=== PATIENT | female | born 1970 | race American Indian/Alaskan Native ===

== ENCOUNTER 2018-11-20 10:01 | Emergency (ER) | payer OTHER ==
[2018-11-20] MEDS ORDERED: NORMODYNE ONE (10:42)
[2018-11-20] MEDS ORDERED: NORMODYNE PO ONE (11:00)
--- NOTE | 2018-11-20 11:02 | Emergency Department Report ---
ED Female HPI - General Chief complaint: Urogenital-Female Stated complaint: PAIN WITH URINATION Time Seen by Provider: 11/20/18 10:35 Source: patient Mode of arrival: Ambulatory Limitations: No Limitations - History of Present Illness Initial comments: Mrs. Gimenez is a very pleasant 48-year-old female with history of hypertension who presents with dysuria. She is concerned for urinary tract infection. She has urinary frequency, dysuria. She also has malodorous urine. She has been in her normal state of health otherwise. However she does admit she has not taken her blood pressure medication in quite some time. She normally takes lisinopril Hydrochlorothiazide. She does not have a primary care physician. She normally goes [facility] ER for hypertension medication. She denies headache. She denies visual changes patient chest pain. She denies paresthesias. MD Complaint: dysuria -: Gradual, days(s) (4) Severity: mild Quality: burning Consistency: intermittent Worsens with: urination Are you Now?: No Associated Symptoms: denies other symptoms - Related Data Previous Rx's Medication Instructions Recorded Last Taken Type Lisinopril [Zestril TAB] 40 mg PO DAILY 90 Days #90 tablet 11/20/18 Unknown Rx cephALEXin [Keflex] 500 mg PO Q6HR 5 Days #20 capsule 11/20/18 Unknown Rx hydroCHLOROthiazide [HCTZ] 25 mg PO QDAY 90 Days #90 tablet 11/20/18 Unknown Rx Allergies Allergy/AdvReac Type Severity Reaction Status Date / Time No Known Allergies Allergy Verified 11/20/18 10:04 ED Review of Systems ROS: Stated complaint: PAIN WITH URINATION Other details as noted in HPI Comment: All other systems reviewed and negative Constitutional: denies: fever, malaise Respiratory: denies: cough Cardiovascular: denies: chest pain Gastrointestinal: denies: abdominal pain Skin: denies: rash, lesions ED Past Medical Hx - Past Medical History Previous Medical History?: Yes Hx Hypertension: Yes (non-compliant with meds) - Surgical History Past Surgical History?: No - Social History Smoking Status: Never Smoker Substance Use Type: None - Medications Home Medications: Home Medications Medication Instructions Recorded Confirmed Last Taken Type Lisinopril [Zestril TAB] 40 mg PO DAILY 90 Days #90 tablet 11/20/18 Unknown Rx cephALEXin [Keflex] 500 mg PO Q6HR 5 Days #20 capsule 11/20/18 Unknown Rx hydroCHLOROthiazide [HCTZ] 25 mg PO QDAY 90 Days #90 tablet 11/20/18 Unknown Rx ED Physical Exam - General Limitations: No Limitations General appearance: alert, in no apparent distress - Head Head exam: Present: atraumatic, normocephalic - Eye Eye exam: Present: normal appearance - ENT ENT exam: Present: mucous membranes moist - Neck Neck exam: Present: normal inspection, full ROM - Respiratory Respiratory exam: Present: normal lung sounds bilaterally. Absent: respiratory distress, wheezes, rales, rhonchi - Cardiovascular Cardiovascular Exam: Present: regular rate, normal rhythm, normal heart sounds. Absent: systolic murmur, diastolic murmur, rubs, gallop - GI/Abdominal GI/Abdominal exam: Present: soft, normal bowel sounds. Absent: distended, tenderness, guarding - Extremities Exam Extremities exam: Present: normal inspection - Back Exam Back exam: Present: normal inspection - Neurological Exam Neurological exam: Present: alert, oriented X3 - Psychiatric Psychiatric exam: Present: normal affect, normal mood - Skin Skin exam: Present: warm, dry, intact, normal color. Absent: rash ED Course Vital Signs 11/20/18 11/20/18 10:11 10:45 Temperature 98.1 F Pulse Rate 92 H 102 H Respiratory 20 Rate Blood Pressure 239/131 Blood Pressure 215/125 [Left] Blood Pressure 248/131 [Right] O2 Sat by Pulse 98 Oximetry ED Medical Decision Making - Medical Decision Making 1. UTI rx: keflex 2. asymptomatic hypertensive urgency, no indication of end organ damage, strongly encouraged medication compliance, prescribed 90 day Lisinopril HCTZ Critical care attestation.: If time is entered above; I have spent that time in minutes in the direct care of this critically ill patient, excluding procedure time. ED Disposition Clinical Impression: UTI (urinary tract infection), Asymptomatic hypertensive urgency Disposition: - TO HOME OR SELFCARE Is pt being admited?: No Does the pt Need Aspirin: No Condition: Stable Instructions: Hypertension (ED), Urinary Tract Infection in Women (ED) Prescriptions: hydroCHLOROthiazide [HCTZ] 25 mg PO QDAY 90 Days #90 tablet cephALEXin [Keflex] 500 mg PO Q6HR 5 Days #20 capsule Lisinopril [Zestril TAB] 40 mg PO DAILY 90 Days #90 tablet Referrals: CHUCK BLACKBURN MD [Primary Care Provider] - 3-5 Days [facility] [Outside] - 3-5 Days [facility] [Outside] - 3-5 Days [facility] [Outside] - 3-5 Days [facility] [Outside] - 3-5 Days [facility] [Outside] - 3-5 Days
[2018-11-20 11:24] LABS: Bilirubin,Urine NEG (Negative); Blood,Urine MOD (Negative); Color,Urine Yellow (Yellow); Mucus,Urine FEW /HPF; Protein,Urine <15 mg/dL mg/dL (Negative); Urobilinogen,Urine < 2.0 mg/dL (<2.0)
[2018-11-20 11:45] VITALS: BP 176/119
== END 2018-11-20 11:47 | disposition home or self-care (01) ==
LOC: ED 10:01
DX: N39.0 Urinary tract infection, site not specified (principal); I10 Essential (primary) hypertension
CPT/HCPCS: 81001; 87086

== ENCOUNTER 2019-01-03 17:03 | Emergency (ER) | payer SELFPAY ==
--- NOTE | 2019-01-03 17:11 | Event Note ---
ED Screening Note Date of service: 01/03/19 Time: 17:10 ED Screening Note: 48 y/o female comes in for wanting a refills on her blood pressure medication. This initial assessment/diagnostic orders/clinical plan/treatment(s) is/are subject to change based on patients health status, clinical progression and re- assessment by fellow clinical providers in the ED. Further treatment and workup at subsequent clinical providers discretion. Patient/guardian urged not to elope from the ED as their condition may be serious if not clinically assessed and managed. Initial orders include:
[2019-01-03 17:50] LABS: Basophils # (Auto) 0.1 K/mm3 (0.0-0.1); Basophils % (Auto) 1.3 % (0.0-1.8); Eosinophils # (Auto) 0.4 K/mm3 (0.0-0.4); Eosinophils % (Auto) 4.8 % (0.0-4.3); Hematocrit 41.6 % (30.3-42.9); Lymphocytes # (Auto) 2.5 K/mm3 (1.2-5.4); Lymphocytes % (Auto) 28.5 % (13.4-35.0); Mean Corpuscular HGB Conc 34 % (30-34); Mean Corpuscular Volume 91 fl (79-97); Monocytes # (Auto) 0.5 K/mm3 (0.0-0.8); Monocytes % (Auto) 5.3 % (0.0-7.3); Platelet Count 322 K/mm3 (140-440); Red Blood Count 4.58 M/mm3 (3.65-5.03); Red Cell Distribution Width 14.5 % (13.2-15.2)
[2019-01-03 18:10] LABS: BUN/Creatinine Ratio 18; Blood Urea Nitrogen 18 mg/dL (7-17); Calcium 10.3 mg/dL (8.4-10.2); Hemolysis Index 12
[2019-01-03] MEDS ORDERED: CATAPRES PO ONE (20:00)
[2019-01-03] MEDS ORDERED: APRESOLINE IV ONE (21:34)
--- NOTE | 2019-01-03 22:39 | Emergency Department Report ---
ED General Adult HPI - General Chief complaint: High BP Stated complaint: NEED BP MEDS Time Seen by Provider: 01/03/19 19:43 Source: patient Mode of arrival: Ambulatory Limitations: No Limitations - History of Present Illness Initial comments: Patient is a 48-year-old female who states she is out of her blood pressure medicines for several weeks and also has been poorly compliant with her diet who is complaining today needs she needs a refill of her medications. Patient states she has no headache shortness of breath chest pain nausea vomiting or focal neurological deficits at this time. Severity scale (0 -10): 0 - Related Data Previous Rx's Medication Instructions Recorded Last Taken Type cephALEXin [Keflex] 500 mg PO Q6HR 5 Days #20 capsule 11/20/18 Unknown Rx Lisinopril [Zestril TAB] 40 mg PO DAILY 90 Days #90 tablet 01/03/19 Unknown Rx hydroCHLOROthiazide [HCTZ] 25 mg PO QDAY 90 Days #90 tablet 01/03/19 Unknown Rx Allergies Allergy/AdvReac Type Severity Reaction Status Date / Time No Known Allergies Allergy Verified 11/20/18 10:04 ED Review of Systems ROS: Stated complaint: NEED BP MEDS Other details as noted in HPI Comment: All other systems reviewed and negative ED Past Medical Hx - Past Medical History Hx Hypertension: Yes (non-compliant with meds) - Surgical History Past Surgical History?: No - Social History Smoking Status: Never Smoker Substance Use Type: None - Medications Home Medications: Home Medications Medication Instructions Recorded Confirmed Last Taken Type cephALEXin [Keflex] 500 mg PO Q6HR 5 Days #20 capsule 11/20/18 Unknown Rx Lisinopril [Zestril TAB] 40 mg PO DAILY 90 Days #90 tablet 01/03/19 Unknown Rx hydroCHLOROthiazide [HCTZ] 25 mg PO QDAY 90 Days #90 tablet 01/03/19 Unknown Rx ED Physical Exam - General Limitations: No Limitations General appearance: alert, in no apparent distress - Head Head exam: Present: atraumatic, normocephalic - Eye Eye exam: Present: normal appearance - ENT ENT exam: Present: mucous membranes moist - Neck Neck exam: Present: normal inspection - Respiratory Respiratory exam: Present: normal lung sounds bilaterally. Absent: respiratory distress - Cardiovascular Cardiovascular Exam: Present: regular rate, normal rhythm. Absent: systolic murmur, diastolic murmur, rubs, gallop - GI/Abdominal GI/Abdominal exam: Present: soft, normal bowel sounds. Absent: distended, tende rness, guarding, rebound - Extremities Exam Extremities exam: Present: normal inspection - Back Exam Back exam: Present: normal inspection - Neurological Exam Neurological exam: Present: alert, oriented X3 - Psychiatric Psychiatric exam: Present: normal affect, normal mood - Skin Skin exam: Present: warm, dry, intact, normal color. Absent: rash ED Course Vital Signs 01/03/19 01/03/19 01/03/19 17:10 18:52 19:56 Temperature 97.9 F 114 F H 98 F Pulse Rate 127 H 105 H Respiratory 18 16 Rate Blood Pressure 209/118 Blood Pressure 235/114 200/108 [Left] O2 Sat by Pulse 98 98 Oximetry 01/03/19 01/03/19 01/03/19 20:06 21:01 22:02 Temperature Pulse Rate 95 H 93 H 83 Respiratory 21 Rate Blood Pressure 218/116 206/117 190/100 Blood Pressure [Left] O2 Sat by Pulse 98 Oximetry ED Medical Decision Making - Lab Data Result diagrams: 01/03/19 17:14 01/03/19 17:14 - Medical Decision Making Patient was given Catapres and also 10 of hydralazine and her blood pressure did start to improve. At time of discharge blood pressure was 175 systolic. Patient still asymptomatic. Patient states she believes she is on heart, thiazide as well as lisinopril. Critical care attestation.: If time is entered above; I have spent that time in minutes in the direct care of this critically ill patient, excluding procedure time. ED Disposition Clinical Impression: Hypertensive urgency Disposition: DC-01 TO HOME OR SELFCARE Is pt being admited?: No Does the pt Need Aspirin: No Condition: Stable Instructions: Hypertension (ED) Prescriptions: hydroCHLOROthiazide [HCTZ] 25 mg PO QDAY 90 Days #90 tablet Lisinopril [Zestril TAB] 40 mg PO DAILY 90 Days #90 tablet Referrals: PRIMARY CARE, [Primary Care Provider] - 3-5 Days Time of Disposition: 22:41
[2019-01-04 00:19] VITALS: BP 171/90
== END 2019-01-03 23:39 | disposition home or self-care (01) ==
LOC: ED 17:03
DX: I16.0 Hypertensive urgency (principal)
CPT/HCPCS: 36415; 80048; 85025; 96374; 99283; J0360